=== PATIENT | female | born 1995 | race African-American/Black ===

== ENCOUNTER 2019-02-06 15:05 | Emergency (ER) | payer MEDICAID, OTHER ==
[~2019-02-06] VITALS: Ht 154.9 cm; Wt 74.8 kg
--- NOTE | 2019-02-06 15:33 | NUR ---
Dr Johnson at the [facility] for MSE.
[2019-02-06] MEDS: ONDANSETRON ODT 4 MG TAB.RAPDIS SL ONE (15:42)
[2019-02-06] MEDS ORDERED: ONDANSETRON ODT 4 MG TAB.RAPDIS ONE (15:44)
[2019-02-06 16:37] LABS: *URINE HCG, QUAL NEGATIVE (NEGATIVE)
--- NOTE | 2019-02-06 17:00 | NUR ---
Patient discharged to home in stable conditon. Written and verbal after care instructions given. Patient verbalizes understanding of instructions. ALL BELONGINGS W/ PT. PT SELF-AMBULATED W/O DIFFICULTY.
[2019-02-06 17:01] VITALS: BP 110/55
== END 2019-02-06 17:01 | disposition home or self-care (01) ==
LOC: ER 15:05
DX: J20.9 Acute bronchitis, unspecified (principal); R11.0 Nausea; R42 Dizziness and giddiness; F17.200 Nicotine dependence, unspecified, uncomplicated; Z88.8 Allergy status to other drugs, medicaments and biological substances
CPT/HCPCS: 71045; 84703; A4663; Q0162